=== PATIENT | male | born 1965 | race Asian ===

== ENCOUNTER → 2018-01-09 | Outpatient (CLI) | payer BC | END | disposition home or self-care (01) | LOC: C/S 12:34 | DX: R91.8 Other nonspecific abnormal finding of lung field (principal); R91.1 Solitary pulmonary nodule; M94.0 Chondrocostal junction syndrome [Tietze] | CPT/HCPCS: 71250 ==

== ENCOUNTER 2018-05-10 14:17 | Day surgery (SDC) | payer BC ==
[2018-05-10] MEDS ORDERED: FENTAnyl 50 MCG/ML VIAL (15:15)
[2018-05-10] MEDS ORDERED: LIDOCAINE 100 MG SYRINGE (15:15)
[2018-05-10] MEDS ORDERED: PROPOFOL 20 ML (15:15)
== END 2018-05-10 16:08 | disposition home or self-care (01) ==
LOC: GIL 14:17
DX: K22.70 Barrett's esophagus without dysplasia (principal); K21.0 Gastro-esophageal reflux disease with esophagitis
CPT/HCPCS: 43239; 88305; 88312; 88313